=== PATIENT | female | born 2000 | race Caucasian/White ===

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

== ENCOUNTER 2022-07-31 20:09 | Inpatient (IN) | payer MEDICAID ==
[~2022-07-31] VITALS: Ht 162.6 cm; Wt 106.6 kg
[~2022-07-31 20:09] MED LIST: IBUP-2213 PO; PENI500T20 PO; PRED20TA5 PO
[2022-07-31 20:35] VITALS: BP 97/49
--- NOTE | 2022-07-31 20:35 | NUR ---
to bed via wheel chair
[2022-07-31] MEDS ORDERED: NACL 0.9% 2,000 ML IV SCH (20:45)
[2022-07-31] MEDS ORDERED: DEXT 5% IV ONE (20:45)
[2022-07-31] MEDS ORDERED: MINI IV ONE (20:45)
[2022-07-31] MEDS ORDERED: CEFTRIAXONE IV ONE (20:45)
--- NOTE | 2022-07-31 20:45 | NUR ---
ASSUMED CARE OF PT AT THIS TIME. PT IN POSITION OF COMFORT. PT PLACED IN GOWN, ON C-MONITOR, IV ESTABLISHED. BLOOD DRAWN BY IV SITE. UPDATED PT ON POC WITH FULL RETURNED VERBAL UNDERSTANDING. WILL CONTINUE TO MONITOR.
[2022-07-31 21:12] LABS: HEMATOCRIT 35.6 % (36-48); MEAN CORPUSCULAR HEMOGLOBIN 28 pg (27-31); MEAN CORPUSCULAR HGB CONC 34 g/dL (33-37); MEAN CORPUSCULAR VOLUME 82.3 fL (80-94); PLATELET COUNT (AUTO) 230 K/uL (140-450); RED BLOOD CELL COUNT(AUTO) 4.32 MIL/uL (4.20-5.40); RED CELL DISTRIBUTION WIDTH 14.9 % (11.6-13.7)
[2022-07-31] MEDS ORDERED: cefTRIAXone 2,000 MG VIAL ONE (21:13)
[2022-07-31 21:16] LABS: WHITE BLOOD COUNT (AUTO) 26.7 K/uL (4.5-11.0)
[2022-07-31] MEDS ORDERED: VANCOMYCIN PER PHARMACY MC PRN (21:20)
[2022-07-31] MEDS ORDERED: VANCOMYCIN 1GM/DEXT 5% PREMIX 200 ML IV ONE (21:20)
--- NOTE | 2022-07-31 21:33 | NUR ---
ULTRASOUND AT BEDSIDE.
[2022-07-31 21:34] LABS: ALBUMIN 3.3 g/dL (3.4-5.0); ANION GAP 18.1 (8-16); ASPARTATE AMINOTRANSFERASE 23 U/L (15-37); CARBON DIOXIDE 25.8 mmol/L (21-32); CHLORIDE 90 mmol/L (98-107); CREATININE 1.8 mg/dL (0.6-1.3); GFR ARICAN-AMERICAN 47 mL/min (>90); GLUCOSE 145 mg/dL (74-106); POTASSIUM 3.9 mmol/L (3.5-5.1); SODIUM SERUM 130 mmol/L (136-145); TOTAL BILIRUBIN 1.5 mg/dL (0.0-1.0); UREA NITROGEN, BLOOD 18 mg/dL (7-18)
[2022-07-31 21:48] LABS: LYMPHOCYTES % (MANUAL) 1 % (20-46)
[2022-07-31] MEDS ORDERED: VANCOMYCIN 1,000 MG VIAL ONE (22:09)
[2022-07-31] MEDS ORDERED: ACETAMINOPHEN EXTRA STRENGTH 500 MG TAB ONE (22:35)
[2022-07-31] MEDS ORDERED: ACETAMINOPHEN 325 MG TAB PO ONE (22:35)
--- NOTE | 2022-07-31 23:00 | NUR ---
PT RETURN FROM RADIOLOGY
[2022-07-31 23:02] LABS: APPEARANCE,URINE CLOUDY (CLEAR); BILIRUBIN,URINE NEGATIVE (NEGATIVE); BLOOD, URINE TRACE-I (NEGATIVE); COLOR,URINE YELLOW (YELLOW); LEUKOCYTE ESTERASE ,URINE NEGATIVE (NEGATIVE); NITRITE, URINE NEGATIVE (NEGATIVE); UGLUCOSE NEGATIVE (NEGATIVE)
[2022-07-31 23:20] LABS: RBC,URINE 0-5 /HPF (0-5); WBC,URINE 0-5 /HPF (0-5)
--- NOTE | 2022-08-01 01:09 | NUR ---
PT IS ADMITTED TO MED SURG FLOOR. NO BEDS AVAILABLE AT THIS TIME. PT AWARE. WILL CONTINUE TO MONITOR. PT SAT UP IN BED AND VOMITED. ALSO INCONTINENT OF BOWEL AT TIME OF VOMITING. PT CLEANED UP WITH LINEN CHANGE. NEW ORDERS GIVEN AND WILL FOLLOW THROUGH.
[2022-08-01] MEDS ORDERED: CLINDAMYCIN 900 MG in DEXTROSE 5% 100 ML IV ONE (01:15)
[2022-08-01] MEDS ORDERED: ONDANSETRON 4 MG/2 ML VIAL IVP PRN (01:15)
[2022-08-01] MEDS ORDERED: CLINDAMYCIN 900 MG/6 ML VIAL IV ONE (01:19)
[2022-08-01] MEDS ORDERED: SODIUM PHOS / POTASSIUM PHOS 1 PKT PDR PO PRN (01:20)
[2022-08-01] MEDS ORDERED: MAGNESIUM OXIDE 400 MG TAB PO PRN (01:20)
[2022-08-01] MEDS ORDERED: HYDROcodone/APAP 5/325 MG 1 TAB TAB PO PRN (01:20)
[2022-08-01] MEDS ORDERED: DOCUSATE SODIUM 100 MG GELCAP PO PRN (01:20)
[2022-08-01 01:46] LABS: MAGNESIUM 1.4 mg/dL (1.8-2.4)
[2022-08-01] MEDS: NACL 0.9% 1,000 ML IV SCH ×3 (01:46→21:11)
[2022-08-01 02:06] LABS: BARBITURATE, URINE NEGATIVE ng/ml (NEG <=200)
[2022-08-01 02:07] LABS: BENZODIAZEPINE, URINE NEGATIVE ng/mL (NEG <=200); CANNABINOID, URINE NEGATIVE ng/mL (NEG <=50); COCAINE, URINE NEGATIVE ng/mL (NEG <=300); OPIATE, URINE NEGATIVE ng/mL (NEG <=2000); PHENCYCLIDINE SCREEN,URINE NEGATIVE ng/mL (NEG <=25)
--- NOTE | 2022-08-01 02:30 | NUR ---
PT UP AND AMBULATES WITH STEADY GAIT TO THE RESTROOM. DENIES ANY PAIN OR NEEDS AT THIS TIME. VSS. WILL CONTINUE TO MONITOR.
--- NOTE | 2022-08-01 03:30 | NUR ---
PT RESTING. NO S/S OF DISTRESS NOTED. PT DENIES ANY NEEDS OR PAIN AT THIS TIME. WILL CONTINUE TO MONITOR.
--- NOTE | 2022-08-01 04:30 | NUR ---
PT RESTING. NO CHANGE IN STATUS AT THIS TIME. WILL CONTINUE TO MONITOR.
--- NOTE | 2022-08-01 05:30 | NUR ---
NO CHANGE IN PT STATUS AT THIS TIME. WILL CONTINUE TO MONITOR. VSS.
--- NOTE | 2022-08-01 06:24 | NUR ---
REPORT CALLED TO MONICA RN WITH FULL RETURNED VERBAL UNDERSTANDING. PT GOING TO BE 119A. NO S/S OF DISTRESS NOTED.
--- NOTE | 2022-08-01 06:40 | NUR ---
PT TRANSPORTED FROM ER VIA GURNEY. PT IS AAOX4 ON RA. PT IS AMBULATORY. GAIT STEADY. PT CAME IN FOR PAIN/REDNESS/SWELLING ON LEFT BREAST. PT HAS LEFT AC 18 GAUGE. NS AT 100 CC/HR. SKIN INTACT. PLAN OF CARE DISCUSSED. WILL CONTINUE TO MONITOR THE PT.
[2022-08-01 07:07] LABS: BASOPHILS # (AUTO) 0.1 K/uL (0.00-0.22); BASOPHILS % (AUTO) 0.3 % (0.0-2.0); EOSINOPHILS # (AUTO) 0.3 K/uL (0-0.4); EOSINOPHILS % (AUTO) 1.6 % (0.0-4.0); HEMATOCRIT 32.7 % (36-48); HEMOGLOBIN 10.9 g/dL (12.0-16.0); LYMPHOCYTES # (AUTO) 0.6 K/uL (2.5-16.5); LYMPHOCYTES % (AUTO) 3.3 % (20.5-51.1); MEAN CORPUSCULAR HEMOGLOBIN 28 pg (27-31); MEAN CORPUSCULAR HGB CONC 33 g/dL (33-37); MEAN CORPUSCULAR VOLUME 82.7 fL (80-94); MONOCYTES # (AUTO) 0.6 K/uL (0.8-1.0); MONOCYTES % (AUTO) 3.2 % (1.7-9.3); NEUTROPHILS # (AUTO) 17.7 K/uL (1.8-7.7); NEUTROPHILS % (AUTO) 91.6 % (42.2-75.2); PLATELET COUNT (AUTO) 171 K/uL (140-450); RED BLOOD CELL COUNT(AUTO) 3.96 MIL/uL (4.20-5.40); RED CELL DISTRIBUTION WIDTH 14.8 % (11.6-13.7); WHITE BLOOD COUNT (AUTO) 19.3 K/uL (4.5-11.0)
--- NOTE | 2022-08-01 07:20 | NUR ---
ENDORSED PT TO DAY SHIFT RN FOR CONTINUITY OF CARE. PT IS STABLE.
--- NOTE | 2022-08-01 07:22 | NUR ---
RECEIVED REPORT FROM SCREEN TENDER NURSE CATHI RN, FOR CONTINUITY OF CARE. PT IS RESTING IN BED, NO SIGNS OF DISTRESS OR LABORED BREATHING. PT IS ON ROOM STATING AT 96%. PT IS A&OX4, SKIN INTACT EXCEPT REDNESS TO L BREAST, AMBULATES TO BATHROOM ON OWN, AND IV 18G L AC INTACT, PATENT AND INFUSING NS AT 100ML/HR. CALL LIGHT IS WITHIN REACH, BED IN LOW POSITION AND ALL NEEDS MET AT THIS TIME. WILL CONTINUE TO MONITOR.
[2022-08-01 07:33] LABS: ANION GAP 15.6 (8-16); CREATININE 1.5 mg/dL (0.6-1.3); POTASSIUM 3.6 mmol/L (3.5-5.1)
[2022-08-01 08:00] VITALS: BP 136/80
[2022-08-01] MEDS ORDERED: VANCOMYCIN 1,500 MG in DEXTROSE 5% 500 ML IV SCH (09:30)
[2022-08-01] MEDS: MORPHINE SULFATE 2 MG/ML SYR IVP PRN ×2 (09:57→14:03)
--- NOTE | 2022-08-01 11:48 | NUR ---
PATIENT HAS BEEN SCREENED AND CATEGORIZED LOW NUTRITION RISK. PATIENT WILL BE SEEN WITHIN 7 DAYS OF ADMISSION. 08/08/[address]
[2022-08-01] MEDS: ONDANSETRON 4 MG/2 ML VIAL IM/IVP PRN (12:48)
--- NOTE | 2022-08-01 14:12 | NUR ---
DC PLANNING SW MET WITH PT AT BEDSIDE TO COMPLETE ASSESSMENT. PATIENT REPORTS RESIDING WITH FAMILY AT THE ADDRESS LISTED ON FILE. PATIENT IDENTIFIED NICK WHITING, STEP MOM, AND TAHMINA MÁRQUEZ, SISTER, EMERGENCY CONTACT. PATIENT REPORTS NOT MEETING WITH PCP REGULARLY, LAST VISIT 3-4 YRS AGO. SW SPOKE WITH PATIENT ABOUT THE IMPORTANCE OF FOLLOW UP/PREVENTATIVE CARE. PATIENT REPORTS NOT TAKING MEDIATION AT THIS TIME AND DENIES BARRIERS IN ACCESS TO MEDICATION, IF NEEDED. PATIENT REPORTS PICKING UP MEDICATION FROM [facility] ON [address] IN [place], WHEN NEEDED. PATIENT REPORTS BEING INDEPENDENT IN ALL ACTIVITIES AND DENIES USE OF DME. PATIENT COMPLETES ALL ADL'S INDEPENDENTLY. PT DENIES MH/SA HX. PATIENT DENIES HX OF DIABETES. PATIENT REPORTS ADEQUATE FOOD SOURCE AT HOME AND REPORTS WORKING FULL- TIME AT [employer]. PATIENT HAS ADEQUATE FRIEND AND FAMILY SUPPORT. PATIENT REPORTS DC PLAN IS TO RETURN HOME WITH FATHER PROVIDING TRANSPORTATION. SW INQUIRED ON RESOURCES NEEDED, PATIENT DECLINED.
[2022-08-01 16:00] VITALS: BP 117/62
[2022-08-01] MEDS: ACETAMINOPHEN 325 MG TAB PO PRN ×2 (16:05→23:54)
--- NOTE | 2022-08-01 19:26 | NUR ---
ENDORSED PATIENT TO CHRISTI RN, PATIENT WAS STABLE DURING SHIFT REPORT.
--- NOTE | 2022-08-01 20:00 | NUR ---
RECEIVED BEDSIDE REPORT FROM DAY NURSE FOR CONTINUITY OF CARE. PATIENT A/A/OX4, LAYING ON BED AND NOT ON ANY DISTRESS. FAMILY AT THE BEDSIDE. PATIENT HAS NO COMPLAIN AT THIS TIME. IVF INFUSING ORDERED. CALL LIGHT WITHIN REACH. WILL CONTINUE POC.
--- NOTE | 2022-08-01 22:00 | NUR ---
ALL SCHEDULED MEDS GIVEN ORDERED. NO ADVERSE DRUG REACTION NOTED. WILL CONTINUE TO OBSERVE THE PATIENT.
--- NOTE | 2022-08-01 23:50 | NUR ---
VITAL SIGNS STABLE, AFEBRILE SATING 97% ON RA. COMPLAINING OF HEADACHE PAIN 5/10 AND PT ASKED FOR PAIN MEDS. WILL MEDICATE THE PATIENT ORDERED.
[2022-08-02] VITALS: BP 124/80
--- NOTE | 2022-08-02 02:00 | NUR ---
PT ASLEEP AT THIS TIME. VISIBLE CHEST RISE AND FALL NOTED. PT NOT ON ANY DISTRESS. WILL CONTINUE OBSERVATION.
--- NOTE | 2022-08-02 04:00 | NUR ---
PT STILL ASLEEP. AROUSABLE AND NO COMPLAIN AT THIS TIME.
--- NOTE | 2022-08-02 06:00 | NUR ---
NO ACUTE EVENT THROUGHOUT THE NIGHT. PATIENT STABLE AND NOT ON ANY DISTRESS. NO COMPLAIN AT THIS TIME. ALL NEEDS ATTENDED. CALL LIGHT WITHIN REACH. WILL ENDORSE THE PATIENT TO THE ONCOMING NURSE FOR CONTINUITY OF CARE.
--- NOTE | 2022-08-02 07:31 | NUR ---
ENDORSED THE PATIENT TO THE ONCOMING NURSE FOR CONTINUITY OF CARE. PATIENT STABLE . SIGNING OFF.
--- NOTE | 2022-08-02 07:32 | NUR ---
RECEIVED REPORT FROM DESIGN MAINTENANCE ENGINEER NURSE CHRISTI RN, FOR CONTINUITY OF CARE. PT IS RESTING IN BED, NO SIGNS OF DISTRESS OR LABORED BREATHING. PT IS ON ROOM STATING AT 96%. PT IS A&OX4, SKIN INTACT EXCEPT REDNESS TO L BREAST, AMBULATES TO BATHROOM ON OWN, AND IV 18G L AC INTACT, PATENT AND INFUSING NS AT 100ML/HR. CALL LIGHT IS WITHIN REACH, BED IN LOW POSITION AND ALL NEEDS MET AT THIS TIME. WILL CONTINUE TO MONITOR.
[2022-08-02 07:33] LABS: BASOPHILS % (AUTO) 0.2 % (0.0-2.0); EOSINOPHILS # (AUTO) 0.6 K/uL (0-0.4); EOSINOPHILS % (AUTO) 4.6 % (0.0-4.0); HEMATOCRIT 29.4 % (36-48); HEMOGLOBIN 9.6 g/dL (12.0-16.0); LYMPHOCYTES # (AUTO) 0.9 K/uL (2.5-16.5); LYMPHOCYTES % (AUTO) 7.2 % (20.5-51.1); MEAN CORPUSCULAR HEMOGLOBIN 27 pg (27-31); MEAN CORPUSCULAR HGB CONC 33 g/dL (33-37); MEAN CORPUSCULAR VOLUME 83.7 fL (80-94); MONOCYTES # (AUTO) 0.6 K/uL (0.8-1.0); MONOCYTES % (AUTO) 4.7 % (1.7-9.3); NEUTROPHILS # (AUTO) 10.2 K/uL (1.8-7.7); NEUTROPHILS % (AUTO) 83.3 % (42.2-75.2); PLATELET COUNT (AUTO) 156 K/uL (140-450); RED BLOOD CELL COUNT(AUTO) 3.51 MIL/uL (4.20-5.40); RED CELL DISTRIBUTION WIDTH 15.4 % (11.6-13.7); WHITE BLOOD COUNT (AUTO) 12.3 K/uL (4.5-11.0)
[2022-08-02] MEDS: ACETAMINOPHEN 325 MG TAB PO PRN ×2 (07:50→19:15)
--- NOTE | 2022-08-02 07:50 | NUR ---
PT ASKED FOR PAIN MEDICATION. PROVIDED WITH PRN TYLENOL.
[2022-08-02 08:00] VITALS: BP 135/80
[2022-08-02] MEDS: NACL 0.9% 1,000 ML IV SCH ×2 (08:16→17:31)
[2022-08-02 08:17] LABS: ANION GAP 12.5 (8-16); CARBON DIOXIDE 24.8 mmol/L (21-32); CREATININE 0.8 mg/dL (0.6-1.3); POTASSIUM 3.3 mmol/L (3.5-5.1)
[2022-08-02] MEDS: ONDANSETRON 4 MG/2 ML VIAL IM/IVP PRN ×2 (08:17→16:32)
[2022-08-02] MEDS: POTASSIUM CHLORIDE 10 MEQ TABER PO PRN (09:58)
[2022-08-02] MEDS: VANCOMYCIN 1,500 MG in DEXTROSE 5% 500 ML IV SCH ×2 (11:39→19:05)
--- NOTE | 2022-08-02 13:00 | NUR ---
PT ASLEEP AT THIS TIME. WILL CONTINUE MONITOR.
[2022-08-02 16:00] VITALS: BP 153/93
[2022-08-02] MEDS: MORPHINE SULFATE 2 MG/ML SYR IVP PRN (16:32)
--- NOTE | 2022-08-02 16:35 | NUR ---
PT COMPLAINED OF SOME PAIN AND NAUSEA. PROVIDED WITH PRN MORPHINE AND ZOFRAN.
--- NOTE | 2022-08-02 17:25 | NUR ---
DR LEONG IN ASSESSING PT. RECOMMENDED TO PUT ICE PACK ON PTS L BREAST TO SEE IF SWELLING WILL GO DOWN. STATED WE WILL CONTINUE WITH ANTIBIOTICS FOR NOW.
--- NOTE | 2022-08-02 17:30 | NUR ---
PT ASKED TO SHOWER, GOT THINGS READY AND WALKED PT TO SHOWER ROOM.
--- NOTE | 2022-08-02 19:27 | NUR ---
ENDORSED PATIENT TO CHRISTI RN, PATIENT WAS STABLE DURING SHIFT REPORT.
--- NOTE | 2022-08-02 19:30 | NUR ---
RECEIVED REPORT FROM CHARGE NURSE CHRISTI FOR CONTINUITY OF CARE. PATIENT IS A&O X4. PATIENT IS ON ROOM AIR, BREATHING IS NORMAL WITH SYMMETRICAL RISE AND FALL OF CHEST. IV IS A 18G LAC, RUNNING NS AT 100. PATIENT IS SLEEPING, LYING IN BED SUPINE. BED IS IN LOWEST POSITION, WHEELS LOCKED, CALL LIGHT IN PLACE. WILL CONTINUE TO OBSERVE PATIENT.
[2022-08-02 20:00] VITALS: BP 149/92
--- NOTE | 2022-08-02 20:45 | NUR ---
WENT INTO PATIENT'S ROOM TO GIVE ROCEPHIN IVPB. PATIENT WAS STILL RUNNING VANCOCIN IVPB. WILL RETURN LATER TO ADMINISTER MEDICATION. PATIENT WAS AWAKE, LYING SUPINE IN BED. I INTRODUCED MYSELF TO PATIENT; PATIENT WAS POLITE, AND SAID CONNIE. INFORMED PATIENT THAT I WOULD RETURN WHEN MEDICATION FINISHED TO ADMINISTER ANOTHER MEDICATION. PATIENT STATED OKAY. WILL CONTINUE TO OBSERVE PATIENT.
--- NOTE | 2022-08-02 22:10 | NUR ---
ADMINISTERED ROCEPHIN IVPB TO PATIENT AT 2159. MEDICATION WAS STARTED WITHOUT ISSUES. PATIENT ASKED ABOUT HER TYLENOL, I INFORMED THE PATIENT THAT HER TYLENOL WAS TOO SOON. PATIENT STATED OKAY AND LAID BACK DOWN TO GO BACK TO SLEEP. BREATHING WAS NORMAL WITH SYMMETRICAL RISE AND FALL OF CHEST. WILL CONTINUE TO OBSERVE PATIENT.
--- NOTE | 2022-08-03 00:30 | NUR ---
PATIENT CALLED, BECAUSE IV WAS BEEPING. LOOKED IN ON IV, HAD PATIENT REPOSITION ARM AND RESTARTED IV; REPOSITIONING WAS SUCCESSFUL. IV IS RUNNING NS AT 100. WILL CONTINUE TO OBSERVE PATIENT.
--- NOTE | 2022-08-03 02:30 | NUR ---
LOOKED IN ON PATIENT. PATIENT WAS SLEEPING, BREATHING WAS NORMAL WITH SYMMETRICAL RISE AND FALL OF CHEST. WILL CONTINUE TO OBSERVE PATIENT.
[2022-08-03] MEDS ORDERED: VANCOMYCIN 500 MG VIAL ONE (03:11)
[2022-08-03] MEDS ORDERED: VANCOMYCIN 1,000 MG VIAL ONE (03:12)
[2022-08-03] MEDS: VANCOMYCIN 1,500 MG in DEXTROSE 5% 500 ML IV SCH ×2 (03:37→10:10)
[2022-08-03] MEDS: NACL 0.9% 1,000 ML IV SCH ×3 (03:38→23:20)
[2022-08-03 04:00] VITALS: BP 160/110
--- NOTE | 2022-08-03 04:00 | NUR ---
ADMINISTERED VANCOCIN IVPB TO PATIENT. MEDICATION WAS SUCCESSFULLY ADMINISTERED. A FEW MINUTES LATER PATIENT CALLED AND SAID IV WAS LEAKING. IV WAS STILL IN ARM; FLUSHED IV FOR PATENCY, IV WAS PATENT. APPLIED NEW TEGADERM DRESSING TO IV AND SECURED WITH TAPE. RESTARTED IV AND ASSESSED. PATIENT STATED THAT IT DIDN'T FEEL LIKE IT WAS LEAKING. PATIENT WAS GOING TO GO BACK TO SLEEP. PATIENT WAS LYING IN BED ON HER SIDE, BREATHING WAS NORMAL WITH SYMMETRICAL RISE AND FALL OF CHEST. BED IS IN LOWEST POSITION WITH WHEELS LOCKED AND CALL LIGHT IN PLACE. WILL CONTINUE TO OBSERVE PATIENT.
[2022-08-03 05:52] LABS: BASOPHILS % (AUTO) 0.4 % (0.0-2.0); EOSINOPHILS # (AUTO) 0.5 K/uL (0-0.4); EOSINOPHILS % (AUTO) 6.1 % (0.0-4.0); HEMATOCRIT 29.8 % (36-48); HEMOGLOBIN 10.1 g/dL (12.0-16.0); LYMPHOCYTES # (AUTO) 1.7 K/uL (2.5-16.5); LYMPHOCYTES % (AUTO) 19.1 % (20.5-51.1); MEAN CORPUSCULAR HEMOGLOBIN 28 pg (27-31); MEAN CORPUSCULAR HGB CONC 34 g/dL (33-37); MEAN CORPUSCULAR VOLUME 82.2 fL (80-94); MONOCYTES # (AUTO) 0.6 K/uL (0.8-1.0); MONOCYTES % (AUTO) 6.9 % (1.7-9.3); NEUTROPHILS # (AUTO) 5.9 K/uL (1.8-7.7); NEUTROPHILS % (AUTO) 67.5 % (42.2-75.2); PLATELET COUNT (AUTO) 198 K/uL (140-450); RED BLOOD CELL COUNT(AUTO) 3.62 MIL/uL (4.20-5.40); RED CELL DISTRIBUTION WIDTH 15.2 % (11.6-13.7); WHITE BLOOD COUNT (AUTO) 8.8 K/uL (4.5-11.0)
--- NOTE | 2022-08-03 06:00 | NUR ---
LOOKED IN ON PATIENT. PATIENT WAS SLEEPING, LYING SUPINE. IVPB VANCOCIN 500ML WAS STILL RUNNING AT 166.6/HR. BREATHING WAS NORMAL WITH SYMMETRICAL RISE AND FALL OF CHEST. WILL CONTINUE TO OBSERVE PATIENT.
[2022-08-03 06:06] LABS: ANION GAP 11.4 (8-16); CARBON DIOXIDE 26.7 mmol/L (21-32); CREATININE 0.7 mg/dL (0.6-1.3); POTASSIUM 3.1 mmol/L (3.5-5.1)
--- NOTE | 2022-08-03 07:47 | NUR ---
ENDORSED TO DAY SHIFT NURSE VINI FOR CONTINUITY OF CARE. PATIENT IS STABLE.
[2022-08-03 08:00] VITALS: BP 141/90
[2022-08-03] MEDS: POTASSIUM CHLORIDE 10 MEQ TABER PO PRN (10:00)
[2022-08-03] MEDS: MORPHINE SULFATE 2 MG/ML SYR IVP PRN (10:01)
[2022-08-03] MEDS: ONDANSETRON 4 MG/2 ML VIAL IM/IVP PRN (10:17)
[2022-08-03] MEDS: VANCOMYCIN HCL 1.25 GM in DEXTROSE 5% 250 ML IV SCH ×2 (11:00→18:55)
--- NOTE | 2022-08-03 11:02 | NUR ---
RECEIVE CALL FROM LAB THAT PATIENT'S VANCOMYCIN TROUGH OVER 20. NURSE HOLD PATIENT'S 1100 O'CLOCK VANCOMYCIN DOSE. WILL CONTINUE TO MONITOR.
[2022-08-03] MEDS ORDERED: CEPH-588 PO (11:58)
[2022-08-03] MEDS ORDERED: IBUP-2213 PO (11:58)
[2022-08-03 16:00] VITALS: BP 141/93
[2022-08-03] MEDS: ACETAMINOPHEN 325 MG TAB PO PRN (18:55)
--- NOTE | 2022-08-03 19:30 | NUR ---
RECEIVED REPORT FROM DAY SHIFT NURSE MARTINI FOR CONTINUITY OF CARE. PATIENT IS A&O X4. PATIENT IS ON ROOM AIR, BREATHING IS NORMAL WITH SYMMETRICAL RISE AND FALL OF CHEST. IV IS A 18G LAC, CURRENTLY RUNNING A VANCO IVPB; REGULAR FLUIDS IS NS AT 100, WHICH WILL RESUME WHEN IVPB COMPLETES. PATIENT IS SITTING UP IN BED VISITING WITH FAMILY. PATIENT STATES THAT LEFT BREAST IS NOT PAINFUL AND DOES NOT FEEL HARD ANYMORE. ASSESSED LEFT BREAST WITH NURSE MARTINI. BREAST IS STILL RED, BUT PATIENT STATES THAT IT IS NOR RED IT USED TO BE. BED IS IN LOWEST POSITION WITH WHEELS LOCKED AND CALL LIGHT IS IN PLACE. WILL CONTINUE TO OBSERVE PATIENT.
--- NOTE | 2022-08-03 19:33 | NUR ---
ENDORSE PATIENT TO PM SHIFT NURSE IN STABLE CONDITION, IV VANCOMYCIN 1.25G INFUSING VIS LAC, PATIENT'S L.SIDE MASTITIS IS NO LONGER HARD & HOT BUT STILL RED
[2022-08-03 20:00] VITALS: BP 154/98
--- NOTE | 2022-08-03 20:00 | NUR ---
OBTAINED PATIENT'S VITALS. VITALS WERE: BP 154/98, HR 99, TEMP 98.5, O2 97%, RR 18. PATIENT WAS IN ROOM WATCHING TV; PATIENT'S FATHER WAS AT BEDSIDE. PATIENT'S BREATHING WAS NORMAL WITH SYMMETRICAL RISE AND FALL OF CHEST. PATIENT'S MOOD WAS POSITIVE. WILL CONTINUE TO OBSERVE PATIENT.
--- NOTE | 2022-08-03 22:10 | NUR ---
ADMINISTERED 2100 IVPB MEDICATION TO PATIENT. MEDICATION WAS ADMINISTERED SUCCESSFULLY WITHOUT ANY ISSUES. PATIENT WAS LYING IN BED WATCHING TV. IV WAS RUNNING NS AT 100. PATIENT'S BREATHING WAS NORMAL WITH SYMMETRICAL RISE AND FALL OF CHEST. PATIENT'S MOOD IS CHEERFUL, AND POSITIVE. PATIENT STATES SHE IS FEELING MUCH BETTER THAN SHE WAS THE PREVIOUS DAY. WILL CONTINUE TO OBSERVE PATIENT.
--- NOTE | 2022-08-04 00:30 | NUR ---
LOOKED IN ON PATIENT. PATIENT WAS WATCHING TV ON HER PHONE. TOLD PATIENT I WAS JUST CHECKING IN ON HER. PATIENT STATED OKAY. WHEN ASKED HOW SHE WAS DOING, PATIENT STATED THAT SHE WAS FEELING MUCH BETTER. I TOLD PATIENT THAT'S GOOD AND ENCOURAGED HER TO TRY AND GET SOME SLEEP. WILL CONTINUE TO OBSERVE PATIENT.
--- NOTE | 2022-08-04 02:00 | NUR ---
LOOKED IN ON PATIENT. PATIENT WAS LYING SUPINE IN BED. PATIENT WAS ASLEEP, BUT WOKE UP UPON ME ENTERING THE ROOM. TOLD PATIENT I WAS JUST CHECKING IN ON HER AND SHE COULD GO BACK TO SLEEP. PATIENT SAID OKAY. BREATHING WAS NORMAL WITH SYMMETRICAL RISE AND FALL OF CHEST. IV IS RUNNING NS AT 100. WILL CONTINUE TO OBSERVE PATIENT.
[2022-08-04 02:15] LABS: BASOPHILS % (AUTO) 0.5 % (0.0-2.0); EOSINOPHILS # (AUTO) 0.5 K/uL (0-0.4); EOSINOPHILS % (AUTO) 5.1 % (0.0-4.0); HEMATOCRIT 31.3 % (36-48); HEMOGLOBIN 10.4 g/dL (12.0-16.0); MEAN CORPUSCULAR HEMOGLOBIN 28 pg (27-31); MEAN CORPUSCULAR HGB CONC 33 g/dL (33-37); MEAN CORPUSCULAR VOLUME 83.3 fL (80-94); MONOCYTES # (AUTO) 0.7 K/uL (0.8-1.0); NEUTROPHILS # (AUTO) 5.6 K/uL (1.8-7.7); NEUTROPHILS % (AUTO) 63.4 % (42.2-75.2); PLATELET COUNT (AUTO) 224 K/uL (140-450); RED BLOOD CELL COUNT(AUTO) 3.76 MIL/uL (4.20-5.40); RED CELL DISTRIBUTION WIDTH 15.2 % (11.6-13.7); WHITE BLOOD COUNT (AUTO) 8.9 K/uL (4.5-11.0)
[2022-08-04 02:23] LABS: ANION GAP 10.8 (8-16); CARBON DIOXIDE 28.3 mmol/L (21-32); CREATININE 0.7 mg/dL (0.6-1.3); POTASSIUM 3.1 mmol/L (3.5-5.1)
[2022-08-04] MEDS: VANCOMYCIN HCL 1.25 GM in DEXTROSE 5% 250 ML IV SCH ×2 (03:26→11:32)
--- NOTE | 2022-08-04 03:30 | NUR ---
ADMINISTERED IVPB MEDICATION TO PATIENT. MEDICATION ADMINISTERED SUCCESSFULLY WITHOUT ANY ISSUES. PATIENT WAS SLEEPING, LYING SUPINE ON HER RIGHT SIDE. BREATHING WAS NORMAL WITH SYMMETRICAL RISE AND FALL OF CHEST. WILL CONTINUE TO OBSERVE PATIENT.
[2022-08-04 04:00] VITALS: BP 141/93
--- NOTE | 2022-08-04 04:45 | NUR ---
OBTAINED PATIENT'S VITALS; VITALS WERE: BP 141/93, HR 80, TEMP 97.8, O2 96, RR 18. PATIENT WAS SLEEPING, LYING SUPINE ON RIGHT SIDE. BREATHING WAS NORMAL WITH SYMMETRICAL RISE AND FALL OF CHEST. PATIENT QUICKLY FELL BACK ASLEEP AFTER VITALS WERE OBTAINED. WILL CONTINUE TO OBSERVE PATIENT.
--- NOTE | 2022-08-04 06:45 | NUR ---
LOOKED IN ON PATIENT. PATIENT WAS SLEEPING. BREATHING WAS NORMAL WITH SYMMETRICAL RISE AND FALL OF CHEST. WILL ENDORSE CARE TO DAY SHIFT NURSE.
--- NOTE | 2022-08-04 07:05 | NUR ---
ENDORSED TO DAY SHIFT VINI FOR CONTINUITY OF CARE. PATIENT IS STABLE.
[2022-08-04] MEDS: NACL 0.9% 1,000 ML IV SCH (09:24)
[2022-08-04 14:08] VITALS: BP 152/92
--- NOTE | 2022-08-04 14:48 | NUR ---
DISCHARGE PATIENT IN STABLE CONDITION PER PCP ORDER. DISCHARGE INSTRUCTION GIVE, CONSENT SIGNED, IV ACCESS & WRIST BAND REMOVED BEFORE PATIENT WALK OUT THE FACILITY. PATIENT WILL FOLLOW UP WITH HER DOCTOR AND CHECK PHARMACY FOR ORDER SOON POSSIBLE.
== END 2022-08-04 16:24 | disposition home or self-care (01) | DRG 720 ==
LOC: MED 20:09 → MMU 08-01 01:09 → MTU 08-01 06:14
PROVIDERS: ADMIT Hospitalist; ATTEND Hospitalist
DX: A41.9 Sepsis, unspecified organism (principal); N17.0 Acute kidney failure with tubular necrosis; E44.1 Mild protein-calorie malnutrition; E87.20 Acidosis, unspecified; N39.0 Urinary tract infection, site not specified; R65.20 Severe sepsis without septic shock; N61.0 Mastitis without abscess; E87.1 Hypo-osmolality and hyponatremia; Z20.822 Contact with and (suspected) exposure to COVID-19; R80.9 Proteinuria, unspecified; D64.9 Anemia, unspecified; E83.42 Hypomagnesemia; E83.51 Hypocalcemia; R73.9 Hyperglycemia, unspecified; E80.6 Other disorders of bilirubin metabolism; F15.90 Other stimulant use, unspecified, uncomplicated; E66.01 Morbid (severe) obesity due to excess calories; Z68.41 Body mass index [BMI] 40.0-44.9, adult; Z80.3 Family history of malignant neoplasm of breast
CPT/HCPCS: 36415; 71045; 71250; 76641; 80048; 80053; 80202; 80305; 81001; 83036; 83605; 83735; 84100; 84484; 85025; 87040; 87081; 87086; 93005; 96365; 96367; 96375; 99291; J0696; J2270; J2405; J3370; J3490; J7060; Q0092

== ENCOUNTER 2023-06-08 11:27 | Emergency (ER) | payer BC, MEDICAID ==
[~2023-06-08] VITALS: Ht 162.6 cm; Wt 110.7 kg
[~2023-06-08 11:27] MED LIST changes: +CEPH-588 PO; -PENI500T20 PO; -PRED20TA5 PO
[2023-06-08 11:54] VITALS: BP 166/113; PULSE 98; RESP 18; TEMP 97.4; O2SAT 97
[2023-06-08 12:30] LABS: BASOPHILS % (AUTO) 0.4 % (0.0-2.0); EOSINOPHILS # (AUTO) 0.2 K/uL (0-0.4); EOSINOPHILS % (AUTO) 2.1 % (0.0-4.0); HEMATOCRIT 40.2 % (36-48); HEMOGLOBIN 13.4 g/dL (12.0-16.0); LYMPHOCYTES # (AUTO) 2.6 K/uL (2.5-16.5); LYMPHOCYTES % (AUTO) 24.4 % (20.5-51.1); MEAN CORPUSCULAR HEMOGLOBIN 28 pg (27-31); MEAN CORPUSCULAR HGB CONC 33 g/dL (33-37); MEAN CORPUSCULAR VOLUME 82.6 fL (80-94); MONOCYTES # (AUTO) 0.6 K/uL (0.8-1.0); MONOCYTES % (AUTO) 5.3 % (1.7-9.3); NEUTROPHILS # (AUTO) 7.2 K/uL (1.8-7.7); NEUTROPHILS % (AUTO) 67.8 % (42.2-75.2); PLATELET COUNT (AUTO) 319 K/uL (140-450); RED BLOOD CELL COUNT(AUTO) 4.87 MIL/uL (4.20-5.40); WHITE BLOOD COUNT (AUTO) 10.7 K/uL (4.5-11.0)
[2023-06-08 12:47] LABS: ANION GAP 8.9 (8-16); CALCIUM 9.1 mg/dL (8.5-10.1); CARBON DIOXIDE 30.4 mmol/L (21-32); CREATININE 0.8 mg/dL (0.6-1.3); POTASSIUM 4.3 mmol/L (3.5-5.1); TOTAL BILIRUBIN 0.2 mg/dL (0.0-1.0); TOTAL PROTEIN, SERUM 8.5 g/dL (6.4-8.2)
[2023-06-08 13:35] VITALS: O2SAT 99
[2023-06-08] MEDS ORDERED: METOCLOPRAMIDE 10 MG TAB PO ONE (14:40)
[2023-06-08] MEDS ORDERED: hydrALAZINE 20 MG/ML VIAL IM ONE (14:40)
[2023-06-08] MEDS ORDERED: ACETAMINOPHEN EXTRA STRENGTH 500 MG TAB PO ONE (14:40)
[2023-06-08] MEDS ORDERED: diphenhydrAMINE 50 MG/ML VIAL IVP ONE (16:05)
[2023-06-08] MEDS ORDERED: DEXAMETHASONE 10 MG/ML VIAL IVP ONE (16:05)
[2023-06-08] MEDS ORDERED: KETOROLAC 30 MG/ML VIAL IVP ONE (16:05)
[2023-06-08] MEDS ORDERED: NACL 0.9% 500 ML IV ONE (16:05)
[2023-06-08] MEDS ORDERED: ONDA-188 PO (18:06)
[2023-06-08] MEDS ORDERED: LISI2.5T12 PO (18:06)
[2023-06-08] MEDS ORDERED: ACET-10509 PO (18:06)
[2023-06-08 18:20] VITALS: BP 136/70; PULSE 88; RESP 18; TEMP 97.6
== END 2023-06-08 18:32 | disposition home or self-care (01) ==
LOC: MED 11:27
DX: I16.0 Hypertensive urgency (principal); R51.9 Headache, unspecified; Z79.899 Other long term (current) drug therapy
CPT/HCPCS: 36415; 70450; 71045; 80053; 81002; 81025; 83880; 84484; 85025; 93005; 96361; 96372; 96374; 96375; 99285; J0360; J1100; J1200; J1885; J7030; J8597